=== PATIENT | female | born 1945 | race Caucasian/White ===

== ENCOUNTER → 2017-02-12 | Outpatient (CLI) | payer MEDICARE, OTHER ==
--- NOTE | 2017-02-14 23:04 | ECHOF ---
DATE OF PROCEDURE: 02/12/2017 ECHOCARDIOGRAM 2-D, M-mode, color-flow and Doppler echocardiographic examinations are performed on this patient. The left atrium is normal in size. The left ventricle is normal in size. The left ventricle including the septum moves appropriately during systole and diastole. Overall ejection fraction is 70%. The mitral valve opens appropriately and does not evidence stenosis or prolapse. There is mitral annular calcification, moderate and mild mitral regurgitation. The aortic valve is calcific and mildly stenotic with a valve area of 1.35. Gradient, however, is only 24 with a mean of 13. The tricuspid valve shows mild to moderate tricuspid regurgitation. Pulmonic valve is not well visualized. Pulmonary artery pressures are elevated mildly at 39 mmHg. IVC collapses well. The right atrium and right ventricle, including inflow and outflow tracts, appear normal. Pacemaker wires are noted. Aortic root appears normal. RV function is normal. No vegetations are seen on any valve. No intracavitary masses or thrombi are noted. There is no pericardial effusion. CONCLUSION Normal LV function, 70%. Mild elevation of pulmonary artery pressures to 39 mmHg. Mild mitral regurgitation with mitral annular calcification. Mild to moderate tricuspid regurgitation. Mild stenosis of the aortic valve with mean gradient of 13. 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 Pacemaker wire is noted in the right heart. [facility]
== END ==
LOC: IMA 12:25
PROVIDERS: ATTEND Internal Medicine Cardiovascular Disease
DX: I10 Essential (primary) hypertension (principal); I08.3 Combined rheumatic disorders of mitral, aortic and tricuspid valves; I27.89 Other specified pulmonary heart diseases; Z95.0 Presence of cardiac pacemaker
CPT/HCPCS: 93306

== ENCOUNTER → 2017-02-19 | Outpatient (CLI) | payer MEDICARE, OTHER | LOC: WC.BC 10:35 | DX: Z12.31 Encounter for screening mammogram for malignant neoplasm of breast (principal) | CPT/HCPCS: 77063; G0202 ==